=== PATIENT | female | born 1955 | race Caucasian/White ===

== ENCOUNTER 2017-07-10 11:19 | Inpatient (IN) | payer BC ==
[2017-07-10] MEDS ORDERED: Sodium Chloride 0.9% 1,000 ML IV ONE ×2 (11:48→11:55)
[2017-07-10] MEDS ORDERED: Sodium Chloride 0.9% 10 ML Syringe FLUSH PRN ×3 (11:50→12:50)
--- NOTE | 2017-07-10 11:55 | EDM.PDOC ---
ED HPI GENERAL MEDICAL PROBLEM - General Chief Complaint: Gastrointestinal Problem Stated Complaint: LOW BLOOD PRESSURE Time Seen by Provider: 07/10/17 11:35 Source of Information: Reports: Patient History Limitations: Reports: No Limitations - History of Present Illness INITIAL COMMENTS - FREE TEXT/NARRATIVE: 62-year-old female is sent over by the walking clinic for evaluation treatment of hypotension. Patient reports that she has been feeling ill for the last week. She has an ileostomy and reports that she is having more watery, blood- tinged stools and normal. She also reports associated symptoms of dizziness, nausea and lightheadedness. She denies any syncope, vomiting, chest pain or shortness of breath. She states that compared to normal she has not appreciated more stools but they're just looser than normal. Patient has a history of ulcerative colitis and rheumatoid arthritis. She states she frequently gets "pouchitis ". Reports she is often treated with ciprofloxacin outpatient and her symptoms resolve. Patient was found to have a systolic blood pressure in the 70s and the walking clinic wasn't sent over us for further management. Abdomen Pain Score (Numeric/FACES): 3 - Related Data Allergies Allergy/AdvReac Type Severity Reaction Status Date / Time ampicillin Allergy Hives Verified 07/10/17 11:27 ertapenem Allergy Rash Verified 07/10/17 11:28 gentamicin [Gentamicin] Allergy Hives Verified 07/10/17 11:27 hydroxychloroquine sulfate Allergy Hives Verified 07/10/17 11:27 [From Plaquenil] metronidazole [From Flagyl] Allergy Hives Verified 07/10/17 11:27 Sulfa (Sulfonamide Allergy Hives Verified 07/10/17 11:27 Antibiotics) losartan [From Cozaar] AdvReac Liver Verified 07/10/17 13:27 Problems Home Meds: Home Meds Levothyroxine [Synthroid] 88 mg PO DAILY 12/04/14 [History] Omeprazole Magnesium [Prilosec Otc] 20 mg PO DAILY 12/04/14 [History] predniSONE 5 mg PO BID 12/04/14 [History] Acetaminophen 1,000 mg PO Q4H PRN 07/10/17 [History] Adalimumab [Humira Crohn's] 40 mg SQ FR 07/10/17 [History] Ascorbic Acid [Vitamin C] 1,000 mg PO BID 07/10/17 [History] Aspirin [Halfprin] 81 mg PO ASDIRECTED 07/10/17 [History] Carboxymethylcellulose Sodium [Refresh Tears 0.5%] 1 drop EYEBOTH DAILY PRN [History] Cholecalciferol (Vitamin D3) [Vitamin D3] 1,000 unit PO BID 07/10/17 [History] Denosumab [Prolia] 60 mg SUBCUT ASDIRECTED 07/10/17 [History] L.acidoph,Paracasei, B.lactis [Probiotic] 1 each PO DAILY 07/10/17 [History] Lisinopril 10 mg PO DAILY 07/10/17 [History] Loratadine 10 mg PO DAILY 07/10/17 [History] Multivitamin [Multivitamins] 1 each PO 07/10/17 [History] Naproxen Sodium [Aleve] 220 mg PO Q12H PRN 07/10/17 [History] Simethicone [Gas-X] 62.5 mg PO DAILY PRN 07/10/17 [History] Triamcinolone Acetonide [Triamcinolone Acetonide 0.1% Crm] 15 gm TOP BID [History] Ursodiol 250 mg PO BID 07/10/17 [History] Vitamin B Complex 1 each PO DAILY 07/10/17 [History] Past Medical History Cardiovascular History: Reports: Hypertension Gastrointestinal History: Reports: Other (See Below) Other Gastrointestinal History: cholitis, illeostomy Endocrine/Metabolic History: Reports: Hypothyroidism - Past Surgical History HEENT Surgical History: Reports: Naso-Sinus Surgery GI Surgical History: Reports: Cholecystectomy Musculoskeletal Surgical History: Reports: Other (See Below) Other Musculoskeletal Surgeries/Procedures:: bunionectomy Social & Family History - Tobacco Use Smoking Status *Q: Never Smoker Second Hand Smoke Exposure: No - Alcohol Use Days Per Week of Alcohol Use: 0 - Recreational Drug Use Recreational Drug Use: No ED ROS GENERAL - Review of Systems Review Of Systems: See Below Respiratory: Denies: Shortness of Breath Cardiovascular: Denies: Chest Pain GI/Abdominal: Reports: Abdominal Pain (cramping), Bloody Stool, Diarrhea ( reports looser, blood tinged stool), Nausea. Denies: Vomiting : Denies: Dysuria, Frequency Neurological: Reports: Dizziness. Denies: Syncope ED EXAM, GI/ABD - Physical Exam Exam: See Below Exam Limited By: No Limitations General Appearance: Alert, WD/WN, No Apparent Distress Throat/Mouth: Normal Inspection, Normal Voice, No Airway Compromise Respiratory/Chest: No Respiratory Distress, Lungs Clear, Normal Breath Sounds Cardiovascular: Normal Peripheral Pulses, Regular Rate, Rhythm, No Murmur GI/Abdominal Exam: Soft, Non-Tender Rectal (Female) Exam: Normal Exam, Normal Rectal Tone, Heme + Stool, Hemorrhoids (nonthrombosed hemorrhoid tag) Neurological: Alert, Oriented, Normal Cognition Psychiatric: Normal Affect, Normal Mood Skin Exam: Warm, Dry, Normal Color EKG INTERPRETATION EKG Date: 07/10/17 Time: 12:10 Rhythm: NSR Rate (Beats/Min): 77 [place]: Normal P-Wave: Present QRS: Normal ST-T: Normal QT: Normal EKG Interpretation Comments: NSR at 77 bpm. short OH interval. No acute ST segment changes. Reviewed by myself and Dr. Harrison Jackson. Course - Vital Signs Last Recorded V/S: Last Vital Signs Temp 36.6 C 07/10/17 20:00 Pulse 66 07/10/17 16:17 Resp 17 07/10/17 20:00 BP 111/63 07/10/17 20:00 Pulse Ox 98 07/10/17 20:00 - Orders/Labs/Meds Orders: Active Orders 24 hr Category Date Time Status Admission Status [Patient Status] [ADT] Routine ADT 07/10/17 15:50 Active Peripheral IV Care [RC] Q2HR Care 07/10/17 11:50 Active CULTURE BLOOD [BC] Stat Lab 07/10/17 12:20 Received CULTURE BLOOD [BC] Stat Lab 07/10/17 13:35 Received Sodium Chloride 0.9% [Saline Flush] Med 07/10/17 11:50 Active 10 ml FLUSH ASDIRECTED PRN Sodium Chloride 0.9% [Saline Flush] Med 07/10/17 12:50 Active 10 ml FLUSH ASDIRECTED PRN Sodium Chloride 0.9% [Saline Flush] Med 07/10/17 12:06 Active 10 ml FLUSH ONETIME PRN Blood Culture x2 Reflex Set [OM.PC] Stat Oth 07/10/17 11:51 Ordered Peripheral IV Insertion Adult [OM.PC] Routine Oth 07/10/17 11:49 Ordered Peripheral IV Insertion Adult [OM.PC] Routine Oth 07/10/17 12:50 Ordered Medication Orders Acetaminophen (Tylenol) 650 mg PO Q4H PRN PRN Reason: Pain (Mild 1-3)/fever Hydrocodone Bitart/Acetaminophen ([place] 325-5 Mg) 1 tab PO Q4H PRN PRN Reason: Pain (moderate 4-6) Albuterol/Ipratropium (Duoneb 3.0-0.5 Mg/3 Ml) 3 ml NEB Q4H PRN PRN Reason: Shortness Of Breath/wheezing Hydralazine HCl (Apresoline) 20 mg IVPUSH Q4H PRN PRN Reason: Hypertension Hydrocortisone Sodium Succinate (Solu-Cortef) 100 mg IVPUSH Q8H MARIE Hydromorphone HCl (Dilaudid) 0.25 mg IVPUSH Q2H PRN PRN Reason: Pain (severe 7-10) Dextrose/Sodium Chloride (Dextrose 5%-1/2 Ns) 1,000 mls @ 125 mls/hr IV ASDIRECTED [facility] Last Admin: 07/10/17 18:10 Dose: 125 mls/hr Clindamycin Phosphate 600 mg/ (Sodium Chloride) 104 mls @ 100 mls/hr IV Q6H [facility] Last Admin: 07/10/17 18:09 Dose: 100 mls/hr Levofloxacin/Dextrose 500 mg/ (Premix) 100 mls @ 100 mls/hr IV Q24H [facility] Lorazepam (Ativan) 1 mg IV Q6H PRN PRN Reason: Anxiety Lorazepam (Ativan) 2 mg IVPUSH Q4H PRN PRN Reason: Seizures Magnesium Sulfate (Pharmacy To Dose - Magnesium Replacement) 1 dose .XX ASDIRECTED [facility] Metoclopramide HCl (Reglan) 10 mg IVPUSH Q6H [facility] Last Admin: 07/10/17 20:27 Dose: 10 mg Metoprolol Tartrate (Lopressor) 5 mg IVPUSH Q4H PRN PRN Reason: Tachycardia Non-Formulary Medication (Adalimumab [Humira Pen Crohn-Uc-Hs Starter]) 40 mg SQ FR [facility] Pantoprazole Sodium (Protonix Iv) 40 mg IV Q12HR [facility] Last Admin: 07/10/17 20:27 Dose: 40 mg Potassium Chloride (Pharmacy To Dose - Potassium Replacement) 1 dose .XX ASDIRECTED MARIE Sodium Chloride (Saline Flush) 10 ml FLUSH ASDIRECTED PRN PRN Reason: Keep Vein Open Last Admin: 07/10/17 12:27 Dose: 10 ml Sodium Chloride (Saline Flush) 10 ml FLUSH ONETIME PRN PRN Reason: IV FLUSH Last Admin: 07/10/17 12:27 Dose: 10 ml Sodium Chloride (Saline Flush) 10 ml FLUSH ASDIRECTED PRN PRN Reason: Keep Vein Open Last Admin: 07/10/17 13:20 Dose: 10 ml Temazepam (Restoril) 15 mg PO BEDTIME PRN PRN Reason: Sleep Labs: Laboratory Tests 07/10/17 07/10/17 07/10/17 Range/Units 11:40 11:40 11:40 WBC 14.33 H (3.98-10.04) K/mm3 RBC 5.28 H (3.98-5.22) M/mm3 Hgb 17.2 H (11.2-15.7) gm/L Hct 50.8 H (34.1-44.9) % MCV 96.2 H (79.4-94.8) fl MCH 32.6 H (25.6-32.2) pg MCHC 33.9 (32.2-35.5) g/dl RDW Std Deviation 47.4 H (36.4-46.3) fL Plt Count 300 (182-369) K/mm3 MPV 10.3 (9.4-12.3) fl Neutrophils % (Manual) 67 H (40-60) % Band Neutrophils % 3 (0-10) % Lymphocytes % (Manual) 24 (20-40) % Atypical Lymphs % 0 % Monocytes % (Manual) 5 (2-10) % Eosinophils % (Manual) 1 (0.7-5.8) % Basophils % (Manual) 0 L (0.1-1.2) Nucleated RBCs 1.0 % Toxic Granulation See note Platelet Estimate Adequate Plt Morphology Comment Normal Spherocytes Moderate RBC Morph Comment Not Reportable Sodium 136 (136-145) mEq/L Potassium 4.0 (3.5-5.1) mEq/L Chloride 98 (98-107) mEq/L Carbon Dioxide 28 (21-32) mEq/L Anion Gap 14.0 (5-15) BUN 60 H (7-18) mg/dL Creatinine 2.3 H (0.55-1.02) mg/dL Est Cr Clr Drug Dosing 23.41 mL/min Estimated GFR (MDRD) 22 (>60) mL/min BUN/Creatinine Ratio 26.1 H (14-18) Glucose 180 H (74-106) mg/dL Lactic Acid (0.4-2.0) mmol/L Calcium 9.5 (8.5-10.1) mg/dL Total Bilirubin 1.1 H (0.2-1.0) mg/dL AST 36 (15-37) U/L ALT 44 (14-59) U/L Alkaline Phosphatase 191 H (46-116) U/L Troponin I < 0.017 (0.00-0.056) ng/mL C-Reactive Protein 5.7 H* (<1.0) mg/dL Total Protein 8.2 (6.4-8.2) g/dl Albumin 2.8 L (3.4-5.0) g/dl Globulin 5.4 gm/dL Albumin/Globulin Ratio 0.5 L (1-2) Urine Color (Yellow) Urine Appearance (Clear) Urine pH (5.0-8.0) Ur Specific [place] (1.005-1.030) Urine Protein (Negative) Urine Glucose (UA) (Negative) Urine Ketones (Negative) Urine Occult Blood (Negative) Urine Nitrite (Negative) Urine Bilirubin (Negative) Urine Urobilinogen (0.2-1.0) Ur Leukocyte Esterase (Negative) Urine RBC (0-5) /hpf Urine WBC (0-5) /hpf Ur Epithelial Cells (0-5) /hpf Urine Bacteria (FEW) /hpf Urine Mucus (FEW) /hpf 07/10/17 07/10/17 Range/Units 12:20 14:26 WBC (3.98-10.04) K/mm3 RBC (3.98-5.22) M/mm3 Hgb (11.2-15.7) gm/L Hct (34.1-44.9) % MCV (79.4-94.8) fl MCH (25.6-32.2) pg MCHC (32.2-35.5) g/dl RDW Std Deviation (36.4-46.3) fL Plt Count (182-369) K/mm3 MPV (9.4-12.3) fl Neutrophils % (Manual) (40-60) % Band Neutrophils % (0-10) % Lymphocytes % (Manual) (20-40) % Atypical Lymphs % % Monocytes % (Manual) (2-10) % Eosinophils % (Manual) (0.7-5.8) % Basophils % (Manual) (0.1-1.2) Nucleated RBCs % Toxic Granulation Platelet Estimate Plt Morphology Comment Spherocytes RBC Morph Comment Sodium (136-145) mEq/L Potassium (3.5-5.1) mEq/L Chloride (98-107) mEq/L Carbon Dioxide (21-32) mEq/L Anion Gap (5-15) BUN (7-18) mg/dL Creatinine (0.55-1.02) mg/dL Est Cr Clr Drug Dosing mL/min Estimated GFR (MDRD) (>60) mL/min BUN/Creatinine Ratio (14-18) Glucose (74-106) mg/dL Lactic Acid 2.1 H (0.4-2.0) mmol/L Calcium (8.5-10.1) mg/dL Total Bilirubin (0.2-1.0) mg/dL AST (15-37) U/L ALT (14-59) U/L Alkaline Phosphatase (46-116) U/L Troponin I (0.00-0.056) ng/mL C-Reactive Protein (<1.0) mg/dL Total Protein (6.4-8.2) g/dl Albumin (3.4-5.0) g/dl Globulin gm/dL Albumin/Globulin Ratio (1-2) Urine Color Yellow (Yellow) Urine Appearance Clear (Clear) Urine pH 6.5 (5.0-8.0) Ur Specific [place] 1.015 (1.005-1.030) Urine Protein Trace H (Negative) Urine Glucose (UA) Negative (Negative) Urine Ketones Negative (Negative) Urine Occult Blood Trace-intact H (Negative) Urine Nitrite Negative (Negative) Urine Bilirubin Negative (Negative) Urine Urobilinogen 0.2 (0.2-1.0) Ur Leukocyte Esterase Negative (Negative) Urine RBC 0-5 (0-5) /hpf Urine WBC 0-5 (0-5) /hpf Ur Epithelial Cells 0-5 (0-5) /hpf Urine Bacteria Few (FEW) /hpf Urine Mucus Not seen (FEW) /hpf Meds: Medications Generic Name Dose Route Start Last Admin Trade Name Freq PRN Reason Stop Dose Admin Acetaminophen 650 mg 07/10/17 17:25 Tylenol PO Q4H PRN Pain (Mild 1-3)/fever Hydrocodone Bitart/Acetaminophen 1 tab 07/10/17 17:25 [place] 325-5 Mg PO Q4H PRN Pain (moderate 4-6) Albuterol/Ipratropium 3 ml 07/10/17 17:25 Duoneb 3.0-0.5 Mg/3 Ml NEB Q4H PRN Shortness Of Breath/wheezing Hydralazine HCl 20 mg 07/10/17 17:36 Apresoline IVPUSH Q4H PRN Hypertension Hydrocortisone Sodium Succinate 100 mg 07/11/17 08:00 Solu-Cortef IVPUSH Q8H MARIE Hydromorphone HCl 0.25 mg 07/10/17 17:25 Dilaudid IVPUSH Q2H PRN Pain (severe 7-10) Dextrose/Sodium Chloride 1,000 mls @ 125 mls/hr 07/10/17 17:30 07/10/17 18:10 Dextrose 5%-1/2 Ns IV 125 mls/hr ASDIRECTED MAIRE Administration Clindamycin Phosphate 600 mg/ 104 mls @ 100 mls/hr 07/10/17 18:00 07/10/17 18 :09 Sodium Chloride IV 100 mls/hr Q6H MARIE Administration Levofloxacin/Dextrose 500 mg/ 100 mls @ 100 mls/hr 07/11/17 09:00 Premix IV Q24H MARIE Lorazepam 1 mg 07/10/17 17:25 Ativan IV Q6H PRN Anxiety Lorazepam 2 mg 07/10/17 17:36 Ativan IVPUSH Q4H PRN Seizures Magnesium Sulfate 1 dose 07/10/17 17:45 Pharmacy To Dose - Magnesium Replacement .XX ASDIRECTED MARIE Metoclopramide HCl 10 mg 07/10/17 20:00 07/10/17 20:27 Reglan IVPUSH 10 mg Q6H MARIE Administration Metoprolol Tartrate 5 mg 07/10/17 17:36 Lopressor IVPUSH Q4H PRN Tachycardia Non-Formulary Medication 40 mg 09/22/17 17:45 Adalimumab [Humira Pen Crohn-Uc-Hs Starter] SQ FR MARIE Pantoprazole Sodium 40 mg 07/10/17 21:00 07/10/17 20:27 Protonix Iv IV 40 mg Q12HR MARIE Administration Potassium Chloride 1 dose 07/10/17 17:45 Pharmacy To Dose - Potassium Replacement .XX ASDIRECTED MARIE Sodium Chloride 10 ml 07/10/17 11:50 07/10/17 12:27 Saline Flush FLUSH 10 ml ASDIRECTED PRN Administration Keep Vein Open Sodium Chloride 10 ml 07/10/17 12:06 07/10/17 12:27 Saline Flush FLUSH 10 ml ONETIME PRN Administration IV FLUSH Sodium Chloride 10 ml 07/10/17 12:50 07/10/17 13:20 Saline Flush FLUSH 10 ml ASDIRECTED PRN Administration Keep Vein Open Temazepam 15 mg 07/10/17 17:25 Restoril PO BEDTIME PRN Sleep Discontinued Medications Generic Name Dose Route Start Last Admin Trade Name Freq PRN Reason Stop Dose Admin Diatrizoate Meglum/Diatrizoate Sod 120 ml 07/10/17 12:06 07/10/17 13:16 Gastrografin 37% PO 07/10/17 12:07 90 ml ONETIME ONE Administration Diphenhydramine HCl 50 mg 07/10/17 12:50 07/10/17 13:18 Benadryl IVPUSH 07/10/17 12:51 50 mg ONETIME ONE Administration Hydrocortisone Sodium Succinate 100 mg 07/10/17 20:33 07/10/17 21:08 Solu-Cortef IVPUSH 07/10/17 20:34 100 mg ONETIME ONE Administration Sodium Chloride 1,000 mls @ 999 mls/hr 07/10/17 11:48 07/10/17 11:58 Normal Saline IV 07/10/17 12:48 999 mls/hr ONETIME ONE Administration Sodium Chloride 1,000 mls @ 999 mls/hr 07/10/17 11:55 07/10/17 12:26 Normal Saline IV 07/10/17 12:55 999 mls/hr ONETIME ONE Administration Ertapenem 1 gm/ Sodium 100 mls @ 100 mls/hr 07/10/17 12:50 07/10/17 13:31 Chloride IV 07/10/17 13:49 100 mls/hr ONETIME ONE Administration Sodium Chloride 1,000 mls @ 100 mls/hr 07/10/17 15:00 07/10/17 15:00 Normal Saline IV 100 mls/hr ASDIRECTED MARIE Administration Levofloxacin/Dextrose 500 mg/ 100 mls @ 100 mls/hr 07/10/17 17:38 07/10/17 18 :09 Premix IV 07/10/17 18:37 100 mls/hr ONETIME ONE Administration Iopamidol 100 ml 07/10/17 12:06 07/10/17 21:09 Isovue-300 (61%) IVPUSH 07/10/17 12:07 Not Given ONETIME ONE - Radiology Interpretation Free Text/Narrative:: CT of the abdomen and pelvis with oral contrast but no IV contrast due to creatinine of 2.3, depression per Dr. Hills: 1. Dilated rectum and colon located within the right abdomen. Position of the colon raises the possibility of previous hemicolectomy. Please correlate. Etiology for the dilation does not appear to be due to an obstruction lesion and could represent chronic change from previous surgery or ileus. 2. Multiple nonobstructing calculi with in both kidneys. No ureteral stone or ureteral dilation is seen. 3. Nonspecific inflammatory change within the left pericolic gutter. Etiology for this is not seen but please exclude any symptoms pyelonephritis. 4. Lobulated liver contour suspicious for cirrhosis. 5. Other incidental findings. CT Results Date: 07/10/17 - Re-Assessments/Exams Free Text/Narrative Re-Assessment/Exam: 07/10/17 13:[address] Harrison Jackson. Recommend starting resuscitation with IV fluids. I reviewed the labs available thus far with the patient. Will start abx given hypotension and elevated wbc and crp. Patient has received invanz in the past with pre treatment with benadryl without problem. Will give 50mg IV benadryl followed by invanz 1 gram. I will have nursing staff start a second IV. Plan will be to admit. Currently awaiting CT. 07/10/17 14:[address] results with the patient. We are currently still awaiting her UA. Her pressure at this time is 105/57. This has significantly improved from the upper 60s and 70s systolic she arrived with earlier. I'm still concerned about the hypotension, her elevated lactic acid, gastroenteritis and possibly a pyelonephritis. Plan will be to admit at this point. 07/10/17 15:10 discussed the case with Dr. Thomas. He agrees to the admission. Asked I first discuss the case with surgery to ensure that we can adequately care for her [place]. I discussed the case with Dr. Bg Toro, surgeon on-call. Will consult if needed. [place] we could adequately treat her with IV fluids and antibiotics. I reviewed this with Dr. Thomas. He agrees to admit the patient. Departure - Departure Time of Disposition: 15:40 Disposition: Admitted As Inpatient 68 Condition: Poor Clinical Impression: Hypotension, Leukocytosis - Discharge Information - My Orders Last 24 Hours: My Active Orders 07/10/17 11:49 Peripheral IV Insertion Adult [OM.PC] Routine 07/10/17 11:50 Peripheral IV Care [RC] Q2HR Sodium Chloride 0.9% [Saline Flush] 10 ml FLUSH ASDIRECTED PRN 07/10/17 11:51 Blood Culture x2 Reflex Set [OM.PC] Stat 07/10/17 12:06 Sodium Chloride 0.9% [Saline Flush] 10 ml FLUSH ONETIME PRN 07/10/17 12:20 CULTURE BLOOD [BC] Stat 07/10/17 12:50 Sodium Chloride 0.9% [Saline Flush] 10 ml FLUSH ASDIRECTED PRN Peripheral IV Insertion Adult [OM.PC] Routine 07/10/17 13:35 CULTURE BLOOD [BC] Stat - Assessment/Plan Last 24 Hours: My Active Orders 07/10/17 11:49 Peripheral IV Insertion Adult [OM.PC] Routine 07/10/17 11:50 Peripheral IV Care [RC] Q2HR Sodium Chloride 0.9% [Saline Flush] 10 ml FLUSH ASDIRECTED PRN 07/10/17 11:51 Blood Culture x2 Reflex Set [OM.PC] Stat 07/10/17 12:06 Sodium Chloride 0.9% [Saline Flush] 10 ml FLUSH ONETIME PRN 07/10/17 12:20 CULTURE BLOOD [BC] Stat 07/10/17 12:50 Sodium Chloride 0.9% [Saline Flush] 10 ml FLUSH ASDIRECTED PRN Peripheral IV Insertion Adult [OM.PC] Routine 07/10/17 13:35 CULTURE BLOOD [BC] Stat
[2017-07-10] MEDS ORDERED: Iopamidol 612 MG/ML 100 ML Bottle IVPUSH ONE (12:06)
[2017-07-10] MEDS ORDERED: Diatrizoate Meglumine/Diatrizoate Sodium 37% 120 ML Bottle PO ONE (12:06)
[2017-07-10] MEDS ORDERED: Ertapenem 1 GM in Sodium Chloride 0.9% 100 ML IV ONE (12:50)
[2017-07-10] MEDS ORDERED: diphenhydrAMINE 50 MG/ML SDV IVPUSH ONE (12:50)
--- NOTE | 2017-07-10 14:01 | CT ---
CT abdomen and pelvis Technique: Multiple axial sections were obtained from above the dome of the diaphragm inferiorly through the pubic symphysis. Intravenous and oral contrast was utilized. No IV contrast was given. Comparison: No previous abdominal imaging. Findings: Small portion of the visualized lung bases shows nothing acute. Slight deformity to several right lower ribs compatible with old healed rib fractures. Liver is lobulated and slightly small raising the possibility of cirrhosis. Small calcification is seen within the liver compatible with granuloma. Spleen shows several calcifications compatible with granulomas. Spleen size is normal. Multiple calcifications are seen within both kidneys more numerous on the left side compatible with nonobstructing calculi. No ureteral dilatation or ureteral stone is seen. Inflammatory-type change is seen within the left paracolic gutter. Etiology not seen. Please exclude any symptoms of pyelonephritis. Contrast is noted within dilated colon within the right abdomen which includes dilated rectum containing contrast. With the colon located on the right side this raises the question of prior partial colonic resection. Please correlate. This dilated colon shows no etiology of an obstructing lesion and findings may be related to previous surgery or represent a focal ileus. No small bowel dilatation is seen. Calcifications are seen within the uterus which are incidental and compatible with leiomyomatous change. No free fluid is seen. Bone window settings were reviewed which appears within normal limits for the patient's age. Impression: 1. Dilated rectum and colon located within the right abdomen. Position of the colon raises the possibility of previous hemicolectomy. Please correlate. Etiology for the dilatation does not appear to be due to an obstructing lesion and could represent chronic change from previous surgery or ileus. 2. Multiple nonobstructing calculi within both kidneys. No ureteral stone or ureteral dilatation is seen. 3. Nonspecific inflammatory change within the left paracolic gutter. Etiology for this is not seen but please exclude any symptoms of pyelonephritis. 4. Lobulated liver contour suspicious for cirrhosis. 4. Other incidental findings as noted above. Diagnostic code #3
[2017-07-10] MEDS ORDERED: Sodium Chloride 0.9% 1,000 ML IV SCH (15:00)
--- NOTE | 2017-07-10 16:16 | PCM.HP ---
H&P History of Present Illness - General Date of Service: 07/10/17 Admit Problem/Dx: Profound Hypotension Source of Information: Patient, Provider, RN Notes Reviewed, Significant Other History Limitations: Reports: Physical Impairment - History of Present Illness Initial Comments - Free Text/Narative: This is a 62-year-old white female with past medical history of hypertension, Bowel Resection, GERD, allergic rhinitis, hypothyroidism, and rheumatoid arthritis who presents to the emergency department for evaluation of hypotension. Patient was seen at the walk-in clinic due to not feeling well for the past week. She also reports having watery diarrhea, blood-tinged stools, dizziness, nausea, and lightheadedness. She denies any syncope, constipation, vomiting, shortness of breath, or chest pain. Patient carries a hx/o Ulcerative Colitis, Chronic Pouchitis and Ileostomy. Her initial workup in the emergency department shows a WBC of 14.33, RBC of 5.28, hemoglobin of 17.2, hematocrit of 50.8, MCV of 96.2, MCH of 32.6, RDW of 47.4, and neutrophils of 67%. Her chemistry is remarkable for BUN of 68, creatinine of 2.3, glucose of 180, total bilirubin of 1.1, lactic acid of 2.1, alkaline phosphatase of 191, CRP of 5.7 and albumin 2.8. Her UA is negative for UTI. She is C. difficile negative screening. Patient is being admitted for profound hypotension and pouchitis cannot rule out sepsis. She is full code. Abdomen Pain Score (Numeric/FACES): 3 - Related Data Allergies/Adverse Reactions: Allergies Allergy/AdvReac Type Severity Reaction Status Date / Time ampicillin Allergy Hives Verified 07/10/17 11:27 ertapenem Allergy Rash Verified 07/10/17 11:28 gentamicin [Gentamicin] Allergy Hives Verified 07/10/17 11:27 hydroxychloroquine sulfate Allergy Hives Verified 07/10/17 11:27 [From Plaquenil] metronidazole [From Flagyl] Allergy Hives Verified 07/10/17 11:27 Sulfa (Sulfonamide Allergy Hives Verified 07/10/17 11:27 Antibiotics) losartan [From Cozaar] AdvReac Liver Verified 07/10/17 13:27 Problems Home Medications: Home Meds Levothyroxine [Synthroid] 88 mg PO DAILY 12/04/14 [History] Omeprazole Magnesium [Prilosec Otc] 20 mg PO DAILY 12/04/14 [History] predniSONE 5 mg PO BID 12/04/14 [History] Acetaminophen 1,000 mg PO Q4H PRN 07/10/17 [History] Adalimumab [Humira Crohn's] 40 mg SQ FR 07/10/17 [History] Ascorbic Acid [Vitamin C] 1,000 mg PO BID 07/10/17 [History] Aspirin [Halfprin] 81 mg PO ASDIRECTED 07/10/17 [History] Carboxymethylcellulose Sodium [Refresh Tears 0.5%] 1 drop EYEBOTH DAILY PRN [History] Cholecalciferol (Vitamin D3) [Vitamin D3] 1,000 unit PO BID 07/10/17 [History] Denosumab [Prolia] 60 mg SUBCUT ASDIRECTED 07/10/17 [History] L.acidoph,Paracasei, B.lactis [Probiotic] 1 each PO DAILY 07/10/17 [History] Lisinopril 10 mg PO DAILY 07/10/17 [History] Loratadine 10 mg PO DAILY 07/10/17 [History] Multivitamin [Multivitamins] 1 each PO 07/10/17 [History] Naproxen Sodium [Aleve] 220 mg PO Q12H PRN 07/10/17 [History] Simethicone [Gas-X] 62.5 mg PO DAILY PRN 07/10/17 [History] Triamcinolone Acetonide [Triamcinolone Acetonide 0.1% Crm] 15 gm TOP BID [History] Ursodiol 250 mg PO BID 07/10/17 [History] Vitamin B Complex 1 each PO DAILY 07/10/17 [History] Past Medical History Cardiovascular History: Reports: Hypertension Gastrointestinal History: Reports: Other (See Below) Other Gastrointestinal History: cholitis, illeostomy Endocrine/Metabolic History: Reports: Hypothyroidism - Past Surgical History HEENT Surgical History: Reports: Naso-Sinus Surgery GI Surgical History: Reports: Cholecystectomy Musculoskeletal Surgical History: Reports: Other (See Below) Other Musculoskeletal Surgeries/Procedures:: bunionectomy Social & Family History - Tobacco Use Smoking Status *Q: Never Smoker Second Hand Smoke Exposure: No - Alcohol Use Days Per Week of Alcohol Use: 0 - Recreational Drug Use Recreational Drug Use: No H&P Review of Systems - Review of Systems: Review Of Systems: See Below General: Reports: Decreased Appetite. Denies: Fever, Chills, Malaise, Weakness , Fatigue HEENT: Reports: No Symptoms Pulmonary: Denies: Shortness of Breath Cardiovascular: Denies: Chest Pain, Palpitations, Dyspnea on Exertion, Edema, Lightheadedness Gastrointestinal: Reports: Abdominal Pain, Bloody Stool. Denies: Nausea, Vomiting Genitourinary: Reports: No Symptoms Musculoskeletal: Reports: No Symptoms Skin: Denies: Cyanosis, Mottled, Pallor, Diaphoresis, Bruising, Pruritis, Rash, Wound, Change in Hair/Nails Psychiatric: Denies: Confusion, Depression, Mood Lability, Anxiety, Hallucinations, Suicidal Ideation, Hallucinations (Auditory) Neurological: Reports: Dizziness, Difficulty Walking, Gait Disturbance. Denies : Confusion, Pre-Existing Deficit, Weakness Hematologic/Lymphatic: Reports: No Symptoms Immunologic: Reports: No Symptoms Exam - Exam Exam: See Below - Vital Signs Vital Signs: Last Vital Signs Temp 35.3 C 07/10/17 11:22 Pulse 72 07/10/17 15:50 Resp 17 07/10/17 15:50 BP 91/61 07/10/17 15:50 Pulse Ox 97 07/10/17 15:50 Weight: 82.554 kg - Exam General: Alert, Oriented, Cooperative. No: Mild Distress HEENT: Conjunctiva Clear, EACs Clear, EOMI, Hearing Intact, Mucosa Moist & [place] , Nares Patent, Normal Nasal Septum, Posterior Pharynx Clear, Pupils Equal, Pupils Reactive Neck: Supple, Trachea Midline, +2 Carotid Pulse wo Bruit Lungs: Clear to Auscultation, Normal Respiratory Effort Cardiovascular: Regular Rate, Regular Rhythm GI/Abdominal Exam: Soft, No Mass, Distended, Tender, Abnormal Bowel Sounds, Other (Huge midline abdominal scar). No: No Organomegaly, Guarding, Rigid, Rebound (Female) Exam: Deferred Rectal (Female) Exam: Deferred Back Exam: Normal Inspection, Decreased Range of Motion Extremities: Normal Inspection, Normal Range of Motion, Non-Tender, No Pedal Edema, Normal Capillary Refill Peripheral Pulses: 2+: Dorsalis Pedis (L), Dorsalis Pedis (R) Skin: Warm, Dry, Intact Neuro Extensive - Mental Status: Oriented x3, Normal Cognition, Memory Intact Neuro Extensive - Motor, Sensory, Reflexes: CN II-XII Intact, Abnormal Gait Psychiatric: Alert, Normal Affect, Normal Mood - Patient Data Result Diagrams: 07/11/17 06:58 07/11/17 06:58 *Q Meaningful Use (ADM) - VTE *Q VTE Criteria *Q: - Stroke *Q Stroke Criteria *Q: - AMI *Q AMI Criteria *Q: Problem List Initiated/Reviewed/Updated: Yes Orders Last 24hrs: Medication Orders Sodium Chloride (Normal Saline) 1,000 mls @ 100 mls/hr IV ASDIRECTED MARIE Last Admin: 07/10/17 15:00 Dose: 100 mls/hr Sodium Chloride (Saline Flush) 10 ml FLUSH ASDIRECTED PRN PRN Reason: Keep Vein Open Last Admin: 07/10/17 12:27 Dose: 10 ml Sodium Chloride (Saline Flush) 10 ml FLUSH ONETIME PRN PRN Reason: IV FLUSH Last Admin: 07/10/17 12:27 Dose: 10 ml Sodium Chloride (Saline Flush) 10 ml FLUSH ASDIRECTED PRN PRN Reason: Keep Vein Open Last Admin: 07/10/17 13:20 Dose: 10 ml Assessment/Plan Comment:: Assessment/Plan: Acute: Profound Hypotension - Cannot r/o Sepsis - WBC 14.33 and CRP 5.7 - LA 2.1 --> repeat at 2100 - Likely 2/2 Intravascular Volume Depletion - Received total 2L IVF in ED - Continue IV Aggressive IV Hydration Pouchitis - Acute on Chronic - Hx/o Ulcerative Colitis, Bowel Resection and Ileostomy - She "gets this a lot" - IV Clindamycin and Levaquin Ulcerative Colitis w/ Ileus - Acute on Chronic - Abn/Pelvis CT scan: Dilated Rectum and Colon - Risk factors: Ulcerative Colitis, Pouchitis, and Immobility - Mild Bloody Stools - Supportive Care - Prokinetic Agent Leukocytosis - WBC 14.33 and CRP 5.7 - Likely 2/2 Above - Treat underlying cause Acute vs CKD - No baseline BUN/Cr for comparison - BUN 60/Cr 2.3 - Aggressively Hydrating - Monitor Output Abn/Pelvis CT scan - Multiple non-obstructing calculi within both kidneys - Nonspecific inflammatory change within the left paracolic gutter - Lobulated Liver Continue Suspicious for Cirrhosis Chronic: AR HT GERD Ileostomy Osteoporosis Hypothyroidism Multiple Drug Allergies Plan: Admit to ICU Sepsis Protocol Routine AM Labs Hold Home Meds NPO for now PT/OT consult SW/CM for d/c planning Code status: 1
[2017-07-10] MEDS ORDERED: Acetaminophen 325 MG Tab PO PRN (17:25)
[2017-07-10] MEDS ORDERED: LORazepam 2 MG/ML MDV IV PRN (17:25)
[2017-07-10] MEDS ORDERED: Temazepam 15 MG Cap PO PRN (17:25)
[2017-07-10] MEDS ORDERED: Albuterol/Ipratropium 3.0-0.5 MG/3 ML Neb Soln NEB PRN (17:25)
[2017-07-10] MEDS ORDERED: HYDROmorphone 0.5 MG/0.5 ML Syringe IVPUSH PRN (17:25)
[2017-07-10] MEDS ORDERED: Acetaminophen/HYDROcodone 325-5 MG Tab PO PRN (17:25)
[2017-07-10] MEDS ORDERED: Metoprolol Tartrate 5 MG/5 ML SDV IVPUSH PRN (17:36)
[2017-07-10] MEDS ORDERED: hydrALAZINE 20 MG/ML SDV IVPUSH PRN (17:36)
[2017-07-10] MEDS ORDERED: LORazepam 2 MG/ML MDV IVPUSH PRN (17:36)
[2017-07-10] MEDS ORDERED: Levofloxacin/Dextrose 5%-Water 500 MG in Premix Bag 1 BAG IV ONE (17:38)
[2017-07-10] MEDS ORDERED: ADALIMUMAB 40 MG SUBCUT SCH (17:45)
[2017-07-10] MEDS: Clindamycin Phosphate 600 MG in Sodium Chloride 0.9% 100 ML IV SCH (18:09)
[2017-07-10] MEDS: Dextrose 5%-0.45% NaCl 1,000 ML IV SCH (18:10)
[2017-07-10] MEDS: Metoclopramide 10 MG/2 ML SDV IVPUSH SCH (20:27)
[2017-07-10] MEDS: Pantoprazole 40 MG Vial IV SCH (20:27)
[2017-07-10] MEDS ORDERED: Hydrocortisone Sodium Succinate 100 MG/2 ML SDV IVPUSH ONE (20:33)
[2017-07-11] MEDS: Clindamycin Phosphate 600 MG in Sodium Chloride 0.9% 100 ML IV SCH ×4 (00:57→18:17)
[2017-07-11] MEDS: Metoclopramide 10 MG/2 ML SDV IVPUSH SCH ×4 (01:02→21:12)
[2017-07-11] MEDS: Dextrose 5%-0.45% NaCl 1,000 ML IV SCH (02:11)
--- NOTE | 2017-07-11 07:57 | PCM.PN ---
- General Info Date of Service: 07/11/17 Admission Dx/Problem (Free Text): Profound Hypotension Subjective Update: Follow Up Functional Status: Reports: Pain Controlled, Urinating. Denies: New Symptoms - Review of Systems General: Denies: Fever, Weakness, Fatigue, Malaise, Chills HEENT: Reports: No Symptoms Pulmonary: Denies: Shortness of Breath Cardiovascular: Denies: Chest Pain, Dyspnea on Exertion, Lightheadedness Gastrointestinal: Reports: Flatus. Denies: Abdominal Pain, Nausea, Vomiting Genitourinary: Reports: No Symptoms Musculoskeletal: Reports: No Symptoms Skin: Denies: Cyanosis, Pallor, Diaphoresis, Rash Neurological: Reports: Difficulty Walking, Gait Disturbance. Denies: Confusion , Weakness Psychiatric: Denies: Depression, Mood Lability, Anxiety, Agitation, Cravings, Hallucinations Systems Review Comment:: No overnight or acute issues. She slept good. She is doing relatively well. Her pressures have improved. She has no new complaints. - Patient Data Vitals - Most Recent: Last Vital Signs Temp 36.3 C 07/11/17 04:00 Pulse 66 07/10/17 16:17 Resp 16 07/11/17 04:00 BP 90/53 L 07/11/17 04:00 Pulse Ox 93 L 07/11/17 04:00 Weight - Most Recent: 83.053 kg I&O - Last 24 Hours: Intake & Output 07/10/17 07/11/17 07/11/17 22:59 06:59 14:59 Intake Total 2971 Balance 2971 Lab Results Last 24 Hours: Laboratory Results - last 24 hr 07/10/17 07/10/17 07/10/17 Range/Units 17:19 18:00 21:32 WBC (3.98-10.04) K/mm3 RBC (3.98-5.22) M/mm3 Hgb (11.2-15.7) gm/L Hct (34.1-44.9) % MCV (79.4-94.8) fl MCH (25.6-32.2) pg MCHC (32.2-35.5) g/dl RDW Std Deviation (36.4-46.3) fL Plt Count (182-369) K/mm3 MPV (9.4-12.3) fl Neut % (Auto) (34.0-71.1) % Lymph % (Auto) (19.3-51.7) % [place] % (Auto) (4.7-12.5) % Eos % (Auto) (0.7-5.8) Baso % (Auto) (0.1-1.2) % Neut # (Auto) (1.56-6.13) K/mm3 Lymph # (Auto) (1.18-3.74) K/mm3 [place] # (Auto) (0.24-0.36) K/mm3 Eos # (Auto) (0.04-0.36) K/mm3 Baso # (Auto) (0.01-0.08) K/mm3 Sodium (136-145) mEq/L Potassium (3.5-5.1) mEq/L Chloride (98-107) mEq/L Carbon Dioxide (21-32) mEq/L Anion Gap (5-15) BUN (7-18) mg/dL Creatinine (0.55-1.02) mg/dL Est Cr Clr Drug Dosing mL/min Estimated GFR (MDRD) (>60) mL/min BUN/Creatinine Ratio (14-18) Glucose (74-106) mg/dL Lactic Acid 2.2 H (0.4-2.0) mmol/L Calcium (8.5-10.1) mg/dL Magnesium 2.1 (1.8-2.4) mg/dl C-Reactive Protein (<1.0) mg/dL C.difficile [id number] Presumptive negative C. difficile Tox (PCR) Negative 07/11/17 07/11/17 Range/Units 06:58 06:58 WBC 8.26 (3.98-10.04) K/mm3 RBC 4.13 (3.98-5.22) M/mm3 Hgb 13.6 (11.2-15.7) gm/L Hct 40.3 (34.1-44.9) % MCV 97.6 H (79.4-94.8) fl MCH 32.9 H (25.6-32.2) pg MCHC 33.7 (32.2-35.5) g/dl RDW Std Deviation 46.8 H (36.4-46.3) fL Plt Count 175 L (182-369) K/mm3 MPV 10.4 (9.4-12.3) fl Neut % (Auto) 82.6 H (34.0-71.1) % Lymph % (Auto) 10.8 L (19.3-51.7) % [place] % (Auto) 5.8 (4.7-12.5) % Eos % (Auto) 0.1 L (0.7-5.8) Baso % (Auto) 0.1 (0.1-1.2) % Neut # (Auto) 6.82 H (1.56-6.13) K/mm3 Lymph # (Auto) 0.89 L (1.18-3.74) K/mm3 [place] # (Auto) 0.48 H (0.24-0.36) K/mm3 Eos # (Auto) 0.01 L (0.04-0.36) K/mm3 Baso # (Auto) 0.01 (0.01-0.08) K/mm3 Sodium 135 L (136-145) mEq/L Potassium 4.3 (3.5-5.1) mEq/L Chloride 103 (98-107) mEq/L Carbon Dioxide 25 (21-32) mEq/L Anion Gap 11.3 (5-15) BUN 32 H (7-18) mg/dL Creatinine 1.5 H (0.55-1.02) mg/dL Est Cr Clr Drug Dosing 35.89 mL/min Estimated GFR (MDRD) 35 (>60) mL/min BUN/Creatinine Ratio 21.3 H (14-18) Glucose 173 H (74-106) mg/dL Lactic Acid (0.4-2.0) mmol/L Calcium 7.6 L (8.5-10.1) mg/dL Magnesium 1.9 (1.8-2.4) mg/dl C-Reactive Protein 6.4 H* (<1.0) mg/dL C.difficile [id number] C. difficile Tox (PCR) Med Orders - Current: Current Medications Acetaminophen (Tylenol) 650 mg PO Q4H PRN PRN Reason: Pain (Mild 1-3)/fever Hydrocodone Bitart/Acetaminophen ([place] 325-5 Mg) 1 tab PO Q4H PRN PRN Reason: Pain (moderate 4-6) Albuterol/Ipratropium (Duoneb 3.0-0.5 Mg/3 Ml) 3 ml NEB Q4H PRN PRN Reason: Shortness Of Breath/wheezing Hydralazine HCl (Apresoline) 20 mg IVPUSH Q4H PRN PRN Reason: Hypertension Hydrocortisone Sodium Succinate (Solu-Cortef) 100 mg IVPUSH Q8H MARIE Hydromorphone HCl (Dilaudid) 0.25 mg IVPUSH Q2H PRN PRN Reason: Pain (severe 7-10) Dextrose/Sodium Chloride (Dextrose 5%-1/2 Ns) 1,000 mls @ 125 mls/hr IV ASDIRECTED MARIE Last Admin: 07/11/17 02:11 Dose: 125 mls/hr Clindamycin Phosphate 600 mg/ (Sodium Chloride) 104 mls @ 100 mls/hr IV Q6H MARIE Last Admin: 07/11/17 06:32 Dose: 100 mls/hr Levofloxacin/Dextrose 500 mg/ (Premix) 100 mls @ 100 mls/hr IV Q24H MARIE Lorazepam (Ativan) 1 mg IV Q6H PRN PRN Reason: Anxiety Lorazepam (Ativan) 2 mg IVPUSH Q4H PRN PRN Reason: Seizures Magnesium Sulfate (Pharmacy To Dose - Magnesium Replacement) 1 dose .XX ASDIRECTED [facility] Metoclopramide HCl (Reglan) 10 mg IVPUSH Q6H [facility] Last Admin: 07/11/17 01:02 Dose: 10 mg Metoprolol Tartrate (Lopressor) 5 mg IVPUSH Q4H PRN PRN Reason: Tachycardia Non-Formulary Medication (Adalimumab [Humira Pen Crohn-Uc-Hs Starter]) 40 mg SQ FR MARIE Pantoprazole Sodium (Protonix Iv) 40 mg IV Q12HR MARIE Last Admin: 07/10/17 20:27 Dose: 40 mg Potassium Chloride (Pharmacy To Dose - Potassium Replacement) 1 dose .XX ASDIRECTED MARIE Sodium Chloride (Saline Flush) 10 ml FLUSH ASDIRECTED PRN PRN Reason: Keep Vein Open Last Admin: 07/10/17 12:27 Dose: 10 ml Sodium Chloride (Saline Flush) 10 ml FLUSH ONETIME PRN PRN Reason: IV FLUSH Last Admin: 07/10/17 12:27 Dose: 10 ml Sodium Chloride (Saline Flush) 10 ml FLUSH ASDIRECTED PRN PRN Reason: Keep Vein Open Last Admin: 07/10/17 13:20 Dose: 10 ml Temazepam (Restoril) 15 mg PO BEDTIME PRN PRN Reason: Sleep Discontinued Medications Diatrizoate Meglum/Diatrizoate Sod (Gastrografin 37%) 120 ml PO ONETIME ONE Stop: 07/10/17 12:07 Last Admin: 07/10/17 13:16 Dose: 90 ml Diphenhydramine HCl (Benadryl) 50 mg IVPUSH ONETIME ONE Stop: 07/10/17 12:51 Last Admin: 07/10/17 13:18 Dose: 50 mg Hydrocortisone Sodium Succinate (Solu-Cortef) 100 mg IVPUSH ONETIME ONE Stop: 07/10/17 20:34 Last Admin: 07/10/17 21:08 Dose: 100 mg Sodium Chloride (Normal Saline) 1,000 mls @ 999 mls/hr IV ONETIME ONE Stop: 07/10/17 12:48 Last Admin: 07/10/17 11:58 Dose: 999 mls/hr Sodium Chloride (Normal Saline) 1,000 mls @ 999 mls/hr IV ONETIME ONE Stop: 07/10/17 12:55 Last Admin: 07/10/17 12:26 Dose: 999 mls/hr Ertapenem 1 gm/ Sodium (Chloride) 100 mls @ 100 mls/hr IV ONETIME ONE Stop: 07/10/17 13:49 Last Admin: 07/10/17 13:31 Dose: 100 mls/hr Sodium Chloride (Normal Saline) 1,000 mls @ 100 mls/hr IV ASDIRECTED MARIE Last Admin: 07/10/17 15:00 Dose: 100 mls/hr Levofloxacin/Dextrose 500 mg/ (Premix) 100 mls @ 100 mls/hr IV ONETIME ONE Stop: 07/10/17 18:37 Last Admin: 07/10/17 18:09 Dose: 100 mls/hr Iopamidol (Isovue-300 (61%)) 100 ml IVPUSH ONETIME ONE Stop: 07/10/17 12:07 Last Admin: 07/10/17 21:09 Dose: Not Given - Exam General: Alert, Oriented, No Acute Distress HEENT: Pupils Equal, Pupils Reactive, EOMI, Mucous Membr. Moist/[place] Neck: Supple, Trachea Midline, No JVD, No Thyromegaly Lungs: Clear to Auscultation, Normal Respiratory Effort Cardiovascular: Regular Rate, Regular Rhythm GI/Abdominal Exam: Normal Bowel Sounds, Soft, Non-Tender, No Organomegaly, No Distention, No Abnormal Bruit, No Mass, Other (Midline abdominal scar; No high pitched bowel sounds; she is passing gas). No: Guarding, Rigid, Rebound (Female) Exam: Deferred Back Exam: Normal Inspection, Decreased Range of Motion Extremities: Normal Inspection, Normal Range of Motion, Non-Tender, No Pedal Edema, Normal Capillary Refill Peripheral Pulses: 2+: Dorsalis Pedis (R) Skin: Warm, Dry, Intact Neurological: No New Focal Deficit. No: Normal Gait Psy/Mental Status: Alert, Normal Affect, Normal Mood - Problem List Review Problem List Initiated/Reviewed/Updated: Yes - My Orders Last 24 Hours: My Active Orders 07/10/17 17:25 Ambulate [RC] ASDIRECTED Height and Weight [RC] 04 Oxygen Therapy [RC] PRN Up ad [place] [RC] ASDIRECTED VTE/DVT Education [RC] PER UNIT ROUTINE Vital Signs [RC] Q4HR Acetaminophen [Tylenol] 650 mg PO Q4H PRN Acetaminophen/HYDROcodone [[place] 325-5 MG] 1 tab PO Q4H PRN Albuterol/Ipratropium [DuoNeb 3.0-0.5 MG/3 ML] 3 ml NEB Q4H PRN HYDROmorphone [Dilaudid] 0.25 mg IVPUSH Q2H PRN LORazepam [Ativan] 1 mg IV Q6H PRN Temazepam [Restoril] 15 mg PO BEDTIME PRN Resuscitation Status Routine 07/10/17 17:29 Intake and Output [RC] 06,14,22 Sequential Compression Device [OM.PC] Per Unit Routine 07/10/17 17:30 Antiembolic Devices [RC] QSHIFT RT Aerosol Therapy [RC] ASDIRECTED Dextrose 5%-0.45% NaCl [Dextrose 5%-1/2 NS] 1,000 ml IV ASDIRECTED 07/10/17 17:31 Consult to Case Management [CONS] Routine Consult to Manager Supply [CONS] Routine Consult to Spiritual Care [CONS] Routine OT Evaluation and Treatment [CONS] Routine PT Evaluation and Treatment [CONS] Routine 07/10/17 17:36 LORazepam [Ativan] 2 mg IVPUSH Q4H PRN Metoprolol Tartrate [Lopressor] 5 mg IVPUSH Q4H PRN hydrALAZINE [Apresoline] 20 mg IVPUSH Q4H PRN 07/10/17 17:45 Adalimumab [Humira Pen Crohn-Uc-Hs Starter] 40 mg SQ FR Magnesium Rep Pharmacy to Dose [Pharmacy to Dose - Magnesium Replacement] 1 dose .XX ASDIRECTED Potassium Rep Pharmacy to Dose [Pharmacy to Dose - Potassium Replacement] 1 dose .XX ASDIRECTED 07/10/17 18:00 Clindamycin Phosphate [Cleocin] 600 mg Sodium Chloride 0.9% [Normal Saline] 100 ml IV Q6H 07/10/17 20:00 Metoclopramide [Reglan] 10 mg IVPUSH Q6H 07/10/17 21:00 Pantoprazole [ProTONIX IV] 40 mg IV Q12HR 07/10/17 Dinner Nothing per Oral Now Diet [DIET] 07/11/17 06:58 CBC WITH AUTO DIFF [HEME] AM 07/11/17 07:56 LACTIC ACID [CHEM] Routine 07/11/17 08:00 Hydrocortisone Sod Succinate [Solu-CORTEF] 100 mg IVPUSH Q8H 07/11/17 09:00 Levofloxacin/Dextrose 5%-Water [Levaquin in D5W 500 MG/100 ML] 500 mg Premix Bag 1 bag IV Q24H 07/12/17 05:11 BASIC METABOLIC PANEL,BMP [CHEM] AM C-REACTIVE PROTEIN [CHEM] AM CBC WITH AUTO DIFF [HEME] AM MAGNESIUM [CHEM] AM 07/13/17 05:11 BASIC METABOLIC PANEL,BMP [CHEM] AM C-REACTIVE PROTEIN [CHEM] AM CBC WITH AUTO DIFF [HEME] AM MAGNESIUM [CHEM] AM 07/14/17 05:11 BASIC METABOLIC PANEL,BMP [CHEM] AM CBC WITH AUTO DIFF [HEME] AM MAGNESIUM [CHEM] AM - Plan Plan:: Assessment/Plan: Acute: Pouchitis, Improved - Acute on Chronic - Hx/o Ulcerative Colitis, Bowel Resection and Ileostomy - She "gets this a lot" - IV Clindamycin and Levaquin Ulcerative Colitis w/ Ileus, Improved - Acute on Chronic - Abn/Pelvis CT scan: Dilated Rectum and Colon - Risk factors: Ulcerative Colitis, Pouchitis, and Immobility - Mild Bloody Stools - Continue Supportive Care and Prokinetic Agent - Encourage to ambulate Acute vs CKD, Improved - No baseline BUN/Cr for comparison - BUN 60/Cr 2.3--> BUN 21.3/Cr 1.5 - Saline lock Abn/Pelvis CT scan - Multiple non-obstructing calculi within both kidneys - Nonspecific inflammatory change within the left paracolic gutter - Lobulated Liver Continue Suspicious for Cirrhosis Resolved: Profound Hypotension - Cannot r/o Sepsis - WBC 14.33 and CRP 5.7 - LA 2.1 --> repeat at 2100 - Likely 2/2 Intravascular Volume Depletion - Received total 2L IVF in ED - Continue IV Aggressive IV Hydration Leukocytosis - WBC 14.33 --> 8.26 and CRP 5.7 --> 6.4 - Likely 2/2 Above - Treat underlying cause Chronic: AR HT GERD Ileostomy Osteoporosis Hypothyroidism Multiple Drug Allergies Plan: She is clinically and hemodynamically better Transfer to Med-Surg with Tele Continue current treatment Routine AM Labs Star PO diet and oral meds Resume Some Home Meds Continue PT/OT Encourage to ambulate as tolerated SW/CM for d/c planning Code status: 1 Possible d/c in 1-2 days
[2017-07-11] MEDS: Hydrocortisone Sodium Succinate 100 MG/2 ML SDV IVPUSH SCH ×2 (08:52→15:15)
[2017-07-11] MEDS: Pantoprazole 40 MG Vial IV SCH ×2 (08:52→21:17)
[2017-07-11] MEDS ORDERED: Levofloxacin/Dextrose 5%-Water 500 MG in Premix Bag 1 BAG IV SCH (09:00)
[2017-07-11] MEDS ORDERED: Magnesium Sulfate/Water 2 GM in Premix Bag 1 BAG IV ONE (10:00)
[2017-07-11] MEDS ORDERED: Simethicone 80 MG Tab.Chew PO PRN (15:43)
[2017-07-11] MEDS ORDERED: Hypromellose 0.5% Ophth Soln 15 ML Bottle EYEBOTH PRN (15:43)
[2017-07-11] MEDS ORDERED: Denosumab 60 MG/1 ML Syringe SUBCUT SCH (15:45)
[2017-07-11] MEDS ORDERED: Levofloxacin/Dextrose 5%-Water 250 MG in Premix Bag 1 BAG IV SCH (17:00)
[2017-07-11] MEDS: Magnesium Oxide 400 MG Tab PO SCH (21:13)
[2017-07-11] MEDS: Ascorbic Acid 500 MG Tab PO SCH (21:14)
[2017-07-11] MEDS: Cholecalciferol (Vitamin D3) 1,000 Unit Tab PO SCH (21:17)
[2017-07-11] MEDS: Triamcinolone Acetonide 0.1% Crm 15 GM Tube TOP SCH (22:02)
--- NOTE | 2017-07-11 23:04 | PCM.DCSUM1 ---
Discharge Summary - Hospital Course Brief History: This is a 62-year-old white female with past medical history of hypertension, Hx/o Bowel Resection, GERD, allergic rhinitis, hypothyroidism, and rheumatoid arthritis who presents to the emergency department for evaluation of hypotension. She admitted for medical treatment for Pouchitis and Ulcerative Colitis with Ileus. - Discharge Data Discharge Date: 07/12/17 Discharge Disposition: Home, Self-Care 01 Condition: Good - Discharge Diagnosis/Problem(s) (1) Acute kidney injury superimposed on chronic kidney disease SNOMED Code(s): 90878730 ICD Code: N17.9 - ACUTE KIDNEY FAILURE, UNSPECIFIED; N18.9 - CHRONIC KIDNEY DISEASE, UNSPECIFIED Status: Resolved (2) Severe hypotension SNOMED Code(s): 57463204 ICD Code: I95.9 - HYPOTENSION, UNSPECIFIED Status: Resolved Qualifiers: Hypotension type: unspecified hypotension type Qualified Code(s): I95.9 - Hypotension, unspecified (3) Ulcerative colitis, acute SNOMED Code(s): 736492277 ICD Code: K51.90 - ULCERATIVE COLITIS, UNSPECIFIED, WITHOUT COMPLICATIONS Status: Resolved Qualifiers: Digestive disease complication type: with intestinal obstruction Qualified Code(s): K51.912 - Ulcerative colitis, unspecified with intestinal obstruction (4) Pouchitis SNOMED Code(s): 890170916 ICD Code: K91.850 - POUCHITIS Status: Acute (5) Leukocytosis SNOMED Code(s): 161271665, 569531865 ICD Code: D72.829 - ELEVATED WHITE BLOOD CELL COUNT, UNSPECIFIED Status: Resolved Qualifiers: Leukocytosis type: unspecified Qualified Code(s): D72.829 - Elevated white blood cell count, unspecified - Patient Summary/Data Operative Procedure(s) Performed: None Complications: None Consults: Consultations 07/10/17 17:31 Consult to Case Management [CONS] Routine Consult to Youtuber [CONS] Routine Consult to Spiritual Care [CONS] Routine OT Evaluation and Treatment [CONS] Routine PT Evaluation and Treatment [CONS] Routine Labs Pending at D/C: None Recommended Follow-up Testing/Procedures: Recommend repeat BMP and CBC in 1 week Hospital Course: Patient was primarily admitted for medical treatment of profound hypotension in the setting of pouchitis and colitis with ileus. 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 In ED, she received initial treatment before she was sent to the unit for treatment. In the unit, she received aggressive volume resuscitation and was put on sepsis protocol. She was covered with double antibiotics and prokinetic to improve her pouchitis and ulcerative colitis. The patient immediately respond this treatment. Her hospital course was uncomplicated. The rest of her chronic medical illness remained stable during this admission. Overnight the patient had a bowel movement and more pronounced flatulence. She had been tolerating regular diet along with her oral pills. Patient is now ready for discharge. She will go home with clindamycin and Levaquin to complete a 4 day course of treatment. She was advised to follow-up with her primary care in 1 week with repeat labs. She was further advised to come back or seek immediate care should her symptoms persist or get worse. Patient expressed understanding and in agreement with the plans as discussed above. All questions were answered. - Patient Instructions Diet: Usual Diet as Tolerated Activity: As Tolerated Driving: Do Not Drive Showering/Bathing: May Shower Notify Provider of: Fever, Increased Pain, Nausea and/or Vomiting Other/Special Instructions: - Please take all medications as directed. - Increased mobility to reduced likley of constipation or slowing of your bowel. - Follow up with your doctor after discharge. - Call your doctor if you have any further questions or concerns - Discharge Plan Prescriptions/Med Rec: Clindamycin HCl 300 mg PO ASDIRECTED #16 capsule Lactobac Cmb #3/Fos/Pantethine [Probiotic & Acidophilus] 1 each PO BID #20 capsule Levofloxacin [Levaquin] 250 mg PO Q48H #4 tablet Prednisone [IMW: predniSONE] 20 mg PO ASDIRECTED #14 tab Home Medications: Home Meds Levothyroxine [Synthroid] 88 mg PO DAILY 12/04/14 [History] Omeprazole Magnesium [Prilosec Otc] 20 mg PO DAILY 12/04/14 [History] predniSONE 5 mg PO BID 12/04/14 [History] Acetaminophen 1,000 mg PO Q4H PRN 07/10/17 [History] Adalimumab [Humira Pen Crohn-Uc-Hs Starter] 40 mg SQ FR 07/10/17 [History] Ascorbic Acid [Vitamin C] 1,000 mg PO BID 07/10/17 [History] Aspirin [Halfprin] 81 mg PO ASDIRECTED 07/10/17 [History] Carboxymethylcellulose Sodium [Refresh Tears 0.5%] 1 drop EYEBOTH DAILY PRN [History] Cholecalciferol (Vitamin D3) [Vitamin D3] 1,000 unit PO BID 07/10/17 [History] Denosumab [Prolia] 60 mg SUBCUT ASDIRECTED 07/10/17 [History] L.acidoph,Paracasei, B.lactis [Probiotic] 1 each PO DAILY 07/10/17 [History] Lisinopril 10 mg PO DAILY 07/10/17 [History] Loratadine 10 mg PO DAILY 07/10/17 [History] Multivitamin [Multivitamins] 1 each PO 07/10/17 [History] Naproxen Sodium [Aleve] 220 mg PO Q12H PRN 07/10/17 [History] Simethicone [Gas-X] 62.5 mg PO DAILY PRN 07/10/17 [History] Triamcinolone Acetonide [Triamcinolone Acetonide 0.1% Crm] 15 gm TOP BID [History] Ursodiol 250 mg PO BID 07/10/17 [History] Vitamin B Complex 1 each PO DAILY 07/10/17 [History] Clindamycin HCl 300 mg PO ASDIRECTED #16 capsule 07/11/17 [Rx] Lactobac Cmb #3/Fos/Pantethine [Probiotic & Acidophilus] 1 each PO BID #20 capsule 07/11/17 [Rx] Levofloxacin [Levaquin] 250 mg PO Q48H #4 tablet 07/11/17 [Rx] Prednisone [IMW: predniSONE] 20 mg PO ASDIRECTED #14 tab 07/12/17 [Rx] Patient Handouts: Hypotension, [id number] Referrals: Veronica Black MD [Primary Care Provider] - (Pt to call and set up own appt. ) - Discharge Summary/Plan Comment DC Time >30 min.: Yes (45 mins) Discharge Summary/Plan Comment: Discharge to Home - General Info Date of Service: 07/12/17 Admission Dx/Problem (Free Text: Profound Hypotension Subjective Update: Follow Up Functional Status: Reports: Pain Controlled, Tolerating Diet, Ambulating, Urinating. Denies: New Symptoms - Review of Systems General: Denies: Fever, Weakness, Fatigue, Malaise, Chills HEENT: Reports: No Symptoms Pulmonary: Denies: Shortness of Breath Cardiovascular: Denies: Chest Pain, Palpitations, Dyspnea on Exertion, Lightheadedness Gastrointestinal: Reports: Flatus. Denies: Abdominal Pain, Decreased Appetite, Diarrhea, Difficulty Swallowing, Nausea Genitourinary: Reports: No Symptoms Musculoskeletal: Reports: No Symptoms Skin: Denies: Cyanosis, Pallor, Diaphoresis, Pruritis, Rash Neurological: Reports: Gait Disturbance. Denies: Confusion, Difficulty Walking , Weakness Psychiatric: Denies: Depression, Mood Lability, Anxiety, Agitation, Hallucinations, Suicidal Ideation Systems Review Comment: No overnight or acute issues. She bowel movement last night w/o blood tinged stool. She is passing out more gas. She tolerated her regular diet and oral pills. She is eager to go home. She has no complaints. - Patient Data Vitals - Most Recent: Last Vital Signs Temp 36.1 C 07/11/17 21:20 Pulse 72 07/11/17 21:20 Resp 14 07/11/17 21:20 BP 130/81 07/11/17 21:20 Pulse Ox 96 07/11/17 21:20 Weight - Most Recent: 83.053 kg I&O - Last 24 hours: Intake & Output 07/11/17 07/11/17 07/12/17 14:59 22:59 06:59 Intake Total 3070 780 Balance 3070 780 Lab Results - Last 24 hrs: Laboratory Results - last 24 hr 07/11/17 07/11/17 07/11/17 Range/Units 06:58 06:58 08:35 WBC 8.26 (3.98-10.04) K/mm3 RBC 4.13 (3.98-5.22) M/mm3 Hgb 13.6 (11.2-15.7) gm/L Hct 40.3 (34.1-44.9) % MCV 97.6 H (79.4-94.8) fl MCH 32.9 H (25.6-32.2) pg MCHC 33.7 (32.2-35.5) g/dl RDW Std Deviation 46.8 H (36.4-46.3) fL Plt Count 175 L (182-369) K/mm3 MPV 10.4 (9.4-12.3) fl Neut % (Auto) 82.6 H (34.0-71.1) % Lymph % (Auto) 10.8 L (19.3-51.7) % [place] % (Auto) 5.8 (4.7-12.5) % Eos % (Auto) 0.1 L (0.7-5.8) Baso % (Auto) 0.1 (0.1-1.2) % Neut # (Auto) 6.82 H (1.56-6.13) K/mm3 Lymph # (Auto) 0.89 L (1.18-3.74) K/mm3 [place] # (Auto) 0.48 H (0.24-0.36) K/mm3 Eos # (Auto) 0.01 L (0.04-0.36) K/mm3 Baso # (Auto) 0.01 (0.01-0.08) K/mm3 Manual Slide Review Normal smear Sodium 135 L (136-145) mEq/L Potassium 4.3 (3.5-5.1) mEq/L Chloride 103 (98-107) mEq/L Carbon Dioxide 25 (21-32) mEq/L Anion Gap 11.3 (5-15) BUN 32 H (7-18) mg/dL Creatinine 1.5 H (0.55-1.02) mg/dL Est Cr Clr Drug Dosing 35.89 mL/min Estimated GFR (MDRD) 35 (>60) mL/min BUN/Creatinine Ratio 21.3 H (14-18) Glucose 173 H (74-106) mg/dL Lactic Acid 1.5 (0.4-2.0) mmol/L Calcium 7.6 L (8.5-10.1) mg/dL Magnesium 1.9 (1.8-2.4) mg/dl C-Reactive Protein 6.4 H* (<1.0) mg/dL Med Orders - Current: Current Medications Acetaminophen (Tylenol) 650 mg PO Q4H PRN PRN Reason: Pain (Mild 1-3)/fever Hydrocodone Bitart/Acetaminophen ([place] 325-5 Mg) 1 tab PO Q4H PRN PRN Reason: Pain (moderate 4-6) Albuterol/Ipratropium (Duoneb 3.0-0.5 Mg/3 Ml) 3 ml NEB Q4H PRN PRN Reason: Shortness Of Breath/wheezing Ascorbic Acid (Vitamin C) 1,000 mg PO BID [facility] Last Admin: 07/11/17 21:14 Dose: 1,000 mg Aspirin (Halfprin) 81 mg PO Q48H [facility] Cholecalciferol (Vitamin D3) 1,000 units PO BID [facility] Last Admin: 07/11/17 21:17 Dose: 1,000 units Denosumab (Prolia) 60 mg SUBCUT ASDIRECTED [facility] Hydralazine HCl (Apresoline) 20 mg IVPUSH Q4H PRN PRN Reason: Hypertension Hydrocortisone Sodium Succinate (Solu-Cortef) 100 mg IVPUSH Q8H [facility] Last Admin: 07/11/17 15:15 Dose: 100 mg Hydromorphone HCl (Dilaudid) 0.25 mg IVPUSH Q2H PRN PRN Reason: Pain (severe 7-10) Clindamycin Phosphate 600 mg/ (Sodium Chloride) 104 mls @ 100 mls/hr IV Q6H [facility] Last Admin: 07/11/17 18:17 Dose: 100 mls/hr Levofloxacin/Dextrose 250 mg/ (Premix) 50 mls @ 50 mls/hr IV Q24H [facility] Last Admin: 07/11/17 17:04 Dose: 50 mls/hr Levothyroxine Sodium (Synthroid) 88 mcg PO ACBREAKFAST [facility] Lorazepam (Ativan) 1 mg IV Q6H PRN PRN Reason: Anxiety Lorazepam (Ativan) 2 mg IVPUSH Q4H PRN PRN Reason: Seizures Magnesium Oxide (Magnesium Oxide) 400 mg PO BID [facility] Last Admin: 07/11/17 21:13 Dose: 400 mg Magnesium Sulfate (Pharmacy To Dose - Magnesium Replacement) 1 dose .XX ASDIRECTED [facility] Metoclopramide HCl (Reglan) 10 mg IVPUSH Q6H [facility] Last Admin: 07/11/17 21:12 Dose: 10 mg Metoprolol Tartrate (Lopressor) 5 mg IVPUSH Q4H PRN PRN Reason: Tachycardia Adalimumab [Humira Pen Crohn-Uc-Hs Starter] 40mg 40 mg SQ FR [facility] Carboxymethylcellulo (se Sodium Opth) 1 drop EYEBOTH DAILY PRN PRN Reason: Dryness L.Acidoph,Paracasei, B.Lactis [Probiotic ] 1 Each 1 each PO DAILY [facility] Simethicone [Gas-X] (62.5mg) 62.5 mg PO DAILY PRN PRN Reason: Other Ursodiol [Ursodiol] (250mg) 250 mg PO BID [facility] Vitamin B Complex 1 (Each) 1 each PO DAILY [facility] Pantoprazole Sodium (Protonix Iv) 40 mg IV Q12HR [facility] Last Admin: 07/11/17 21:17 Dose: 40 mg Pantoprazole Sodium (Protonix) 40 mg PO DAILY@0700 [facility] Potassium Chloride (Pharmacy To Dose - Potassium Replacement) 1 dose .XX ASDIRECTED MARIE Sodium Chloride (Saline Flush) 10 ml FLUSH ASDIRECTED PRN PRN Reason: Keep Vein Open Last Admin: 07/10/17 12:27 Dose: 10 ml Sodium Chloride (Saline Flush) 10 ml FLUSH ONETIME PRN PRN Reason: IV FLUSH Last Admin: 07/10/17 12:27 Dose: 10 ml Sodium Chloride (Saline Flush) 10 ml FLUSH ASDIRECTED PRN PRN Reason: Keep Vein Open Last Admin: 07/10/17 13:20 Dose: 10 ml Temazepam (Restoril) 15 mg PO BEDTIME PRN PRN Reason: Sleep Triamcinolone Acetonide (Triamcinolone Acetonide 0.1% Crm) 0 gm TOP BID [facility] Last Admin: 07/11/17 22:02 Dose: Not Given Discontinued Medications Diatrizoate Meglum/Diatrizoate Sod (Gastrografin 37%) 120 ml PO ONETIME ONE Stop: 07/10/17 12:07 Last Admin: 07/10/17 13:16 Dose: 90 ml Diphenhydramine HCl (Benadryl) 50 mg IVPUSH ONETIME ONE Stop: 07/10/17 12:51 Last Admin: 07/10/17 13:18 Dose: 50 mg Hydrocortisone Sodium Succinate (Solu-Cortef) 100 mg IVPUSH ONETIME ONE Stop: 07/10/17 20:34 Last Admin: 07/10/17 21:08 Dose: 100 mg Sodium Chloride (Normal Saline) 1,000 mls @ 999 mls/hr IV ONETIME ONE Stop: 07/10/17 12:48 Last Admin: 07/10/17 11:58 Dose: 999 mls/hr Sodium Chloride (Normal Saline) 1,000 mls @ 999 mls/hr IV ONETIME ONE Stop: 07/10/17 12:55 Last Admin: 07/10/17 12:26 Dose: 999 mls/hr Ertapenem 1 gm/ Sodium (Chloride) 100 mls @ 100 mls/hr IV ONETIME ONE Stop: 07/10/17 13:49 Last Admin: 07/10/17 13:31 Dose: 100 mls/hr Sodium Chloride (Normal Saline) 1,000 mls @ 100 mls/hr IV ASDIRECTED MARIE Last Admin: 07/10/17 15:00 Dose: 100 mls/hr Dextrose/Sodium Chloride (Dextrose 5%-1/2 Ns) 1,000 mls @ 125 mls/hr IV ASDIRECTED MARIE Last Admin: 07/11/17 02:11 Dose: 125 mls/hr Levofloxacin/Dextrose 500 mg/ (Premix) 100 mls @ 100 mls/hr IV ONETIME ONE Stop: 07/10/17 18:37 Last Admin: 07/10/17 18:09 Dose: 100 mls/hr Levofloxacin/Dextrose 500 mg/ (Premix) 100 mls @ 100 mls/hr IV Q24H [facility] Magnesium Sulfate 2 gm/ Premix 50 mls @ 50 mls/hr IV ONETIME ONE Stop: 07/11/17 10:59 Last Admin: 07/11/17 09:59 Dose: Not Given Iopamidol (Isovue-300 (61%)) 100 ml IVPUSH ONETIME ONE Stop: 07/10/17 12:07 Last Admin: 07/10/17 21:09 Dose: Not Given - Exam General: Reports: Alert, Oriented, Cooperative, No Acute Distress HEENT: Reports: Pupils Equal, Pupils Reactive, EOMI, Mucous Membr. Moist/Ginger Blue Neck: Reports: Supple, Trachea Midline, No JVD, No Thyromegaly Lungs: Reports: Clear to Auscultation, Normal Respiratory Effort Cardiovascular: Reports: Regular Rate, Regular Rhythm GI/Abdominal Exam: Normal Bowel Sounds, Soft, Non-Tender, No Organomegaly, No Distention, No Abnormal Bruit, Other (Obese with midline surgical scar) (Female) Exam: Deferred Rectal (Female) Exam: Deferred Back Exam: Reports: Normal Inspection, Decreased Range of Motion Extremities: Normal Inspection, Normal Range of Motion, Non-Tender, No Pedal Edema, Normal Capillary Refill Skin: Reports: Warm, Dry, Intact Neurological: Reports: No New Focal Deficit Psy/Mental Status: Reports: Alert, Normal Affect, Normal Mood *Q Meaningful Use (DIS) - VTE *Q VTE Criteria *Q: - Stroke *Q Stroke Criteria *Q: - AMI *Q AMI Criteria *Q:
[2017-07-12] MEDS: Metoclopramide 10 MG/2 ML SDV IVPUSH SCH ×3 (01:05→08:22)
[2017-07-12] MEDS: Clindamycin Phosphate 600 MG in Sodium Chloride 0.9% 100 ML IV SCH ×2 (01:05→05:51)
[2017-07-12] MEDS: Hydrocortisone Sodium Succinate 100 MG/2 ML SDV IVPUSH SCH ×3 (01:06→08:49)
[2017-07-12 05:59] VITALS: BP 133/91
[2017-07-12] MEDS ORDERED: Levothyroxine 88 MCG Tab PO SCH (06:00)
[2017-07-12] MEDS ORDERED: Pantoprazole 40 MG Tab.CR PO SCH (07:00)
[2017-07-12] MEDS: Ascorbic Acid 500 MG Tab PO SCH (08:08)
[2017-07-12] MEDS: Pantoprazole 40 MG Vial IV SCH ×2 (08:08→08:49)
[2017-07-12] MEDS: Magnesium Oxide 400 MG Tab PO SCH (08:09)
[2017-07-12] MEDS: Cholecalciferol (Vitamin D3) 1,000 Unit Tab PO SCH (08:09)
[2017-07-12] MEDS: URSODIOL 250 MG PO SCH ×2 (08:52→10:40)
[2017-07-12] MEDS ORDERED: Potassium Chloride/Sodium Chloride Tab PO ONE (09:00)
[2017-07-12] MEDS ORDERED: Aspirin 81 MG Tab.EC PO SCH (09:00)
[2017-07-12] MEDS ORDERED: Vitamin B Complex With Vitamin C Cap PO SCH (09:00)
[2017-07-12] MEDS ORDERED: L.Acidoph,Paracasei, B.Lactis [Probiotic] 1 EACH PO SCH (09:00)
[2017-07-12] MEDS ORDERED: Magnesium Oxide 400 MG Tab PO ONE (09:03)
[2017-07-12] MEDS: Triamcinolone Acetonide 0.1% Crm 15 GM Tube TOP SCH (09:05)
[2017-07-12] MEDS ORDERED: Magnesium Sulfate/Water 2 GM in Premix Bag 1 BAG IV ONE (09:30)
== END 2017-07-12 11:22 | disposition home or self-care (01) | DRG 207 ==
LOC: JD.ED 11:19 → JD.ICU 16:09
PROVIDERS: ADMIT Internal Medicine; ATTEND Internal Medicine
DX: I95.9 Hypotension, unspecified (principal); D72.829 Elevated white blood cell count, unspecified; K91.850 Pouchitis; K94.10 Enterostomy complication, unspecified; K51.912 Ulcerative colitis, unspecified with intestinal obstruction; I12.9 Hypertensive chronic kidney disease with stage 1 through stage 4 chronic kidney disease, or unspecified chronic kidney disease; N18.9 Chronic kidney disease, unspecified; N17.9 Acute kidney failure, unspecified; N20.0 Calculus of kidney; E03.9 Hypothyroidism, unspecified; M06.9 Rheumatoid arthritis, unspecified; Z88.1 Allergy status to other antibiotic agents; Z88.2 Allergy status to sulfonamides; Z88.8 Allergy status to other drugs, medicaments and biological substances; Z79.82 Long term (current) use of aspirin; Z79.899 Other long term (current) drug therapy; M81.0 Age-related osteoporosis without current pathological fracture; K21.9 Gastro-esophageal reflux disease without esophagitis; J30.9 Allergic rhinitis, unspecified
CPT/HCPCS: 36415; 74176; 74176-26; 80048; 80053; 81001; 83605; 83735; 84484; 85025; 86140; 87040; 87493; 93005; 96361; 96365; 96375; 97161-GP; 99285; 99285-25; A9270; A9270-GY; C9113; J1200; J1335; J1720; J1956; J2765; J7030; J7040; J7042; J7050; P9612; Q9963